=== PATIENT | male | born 1970 | race Caucasian/White ===

== ENCOUNTER 2018-09-13 10:45 | Emergency (ER) | payer BC ==
[2018-09-13] MEDS ORDERED: Orphenadrine 100 MG Tab.ER PO STA (11:38)
--- NOTE | 2018-09-13 11:46 | EDM.PDOC ---
ED HPI GENERAL MEDICAL PROBLEM - General Chief Complaint: Headache Stated Complaint: HEADACHE Time Seen by Provider: 09/13/18 11:19 Source of Information: Reports: Patient, Family (), RN Notes Reviewed History Limitations: Reports: No Limitations - History of Present Illness INITIAL COMMENTS - FREE TEXT/NARRATIVE: The patient states that he has had a headache felt in the back of his head, radiating to his jaws, ears, and the back of his eyes, for the past 6 weeks, persistently. It is sharp and stabbing in character. The patient is able to sleep, but the headache is still there when he wakes up. He has been taking Tylenol and Excedrin, without meaningful relief. He states that he was seen at the [facility] about 2 weeks ago. He states that no tests were done, but that he was prescribed [place]. He states that the [place] only seems to help for about one hour. The patient reports some blurry vision, and that he occasionally sees spots. He has had some nausea, but no emesis. No neurologic symptoms, such as tingling, numbness, or weakness. The patient reports that he has had similar headaches in the past, in fact, for most of his life. He reports that he has previously had neurologic evaluations, and the conclusion was that his headaches are related to neck issues. He states that he had the best relief after he had neck surgery, until a bone spur subsequently developed, and his headaches returned. The patient does not recall when the last imaging of his head was. The patient's PCP is Aleksandar Manuel. Headache Pain Score (Numeric/FACES): 8 - Related Data Allergies Allergy/AdvReac Type Severity Reaction Status Date / Time citalopram hydrobromide Allergy Cannot Verified 09/13/18 11:07 [From Celexa] Remember sertraline HCl [From Zoloft] Allergy Cannot Verified 09/13/18 11:07 Remember Tetanus Vaccines and Toxoid Allergy Fever Verified 09/13/18 11:07 [Tetanus Vaccines & Toxoid] Home Meds: Home Meds Celecoxib [CeleBREX] 100 mg PO BID 09/13/18 [History] Metoprolol Succinate 25 mg PO DAILY 09/13/18 [History] Montelukast [Singulair] 10 mg PO DAILY 09/13/18 [History] Nabumetone/Capsai/M-Salicy/Men [Nudroxipak N-500 Evgeny] 1 each MC DAILY PRN [History] Orphenadrine [Norflex] 1 tab PO Q12H PRN #14 tab.er 09/13/18 [Rx] tiZANidine [Zanaflex] 4 mg PO BEDTIME PRN 09/13/18 [History] Past Medical History Cardiovascular History: Reports: Hypertension Genitourinary History: Reports: Renal Calculus Musculoskeletal History: Reports: Neck Pain, Chronic (DDD), Osteoarthritis - Past Surgical History HEENT Surgical History: Reports: Naso-Sinus Surgery, Oral Surgery (wisdom teeth extraction) Neurological Surgical History: Reports: C-Spine (ACDF x 2, totalling C3-C7) Social & Family History - Family History Family Medical History: Noncontributory - Tobacco Use Smoking Status *Q: Former Smoker Tobacco Use Within Last Twelve Months: Smokeless Tobacco (Chews 1 can per week) Month/Year Tobacco Last Used: Quit 1988 - Caffeine Use Caffeine Use: Reports: Soda - Alcohol Use Alcohol Use History: Yes Alcohol Use Frequency: Rarely - Recreational Drug Use Recreational Drug Use: No - Living Situation & Occupation Living situation: Reports: , with Spouse, with Family (2 kids) Occupation: Employed (Dental Prosthetist) ED ROS GENERAL - Review of Systems Review Of Systems: ROS reveals no pertinent complaints other than HPI. - Physical Exam Exam: See Below Exam Limited By: No Limitations General Appearance: Alert, WD/WN, No Apparent Distress Eye Exam: Bilateral Eye: EOMI, Normal Inspection, PERRL (3 mm bilaterally) Ears: Normal External Exam, Normal Canal, Hearing Grossly Normal, Normal TMs Nose: Normal Inspection, Normal Mucosa, No Blood Throat/Mouth: Normal Inspection, Normal Lips, Normal Teeth, Normal Gums, Normal Oropharynx, Normal Voice, No Airway Compromise Head Exam: Atraumatic, Normocephalic Neck: Normal Inspection, Limited Range of Motion Respiratory/Chest: No Respiratory Distress, Lungs Clear, Normal Breath Sounds, No Accessory Muscle Use Cardiovascular: Normal Peripheral Pulses, Regular Rate, Rhythm, No Edema, No Gallop, No JVD, No Murmur, No Rub GI/Abdominal: Normal Bowel Sounds, Soft, Non-Tender, No Organomegaly, No Distention, No Abnormal Bruit, No Mass (Male) Exam: Deferred Rectal (Males) Exam: Deferred Neuro Exam (Abbreviated): Alert, Oriented, CN II-XII Intact, Normal Cognition, No Motor/Sensory Deficits Back Exam: Normal Inspection, Full Range of Motion, NT Extremities: Normal Inspection, Normal Range of Motion, No Pedal Edema, Normal Capillary Refill Psychiatric: Normal Affect Skin Exam: Warm, Dry, Intact, Normal Color, No Rash Course - Vital Signs Last Recorded V/S: Last Vital Signs Temp 36.1 C 09/13/18 11:07 Pulse 62 09/13/18 11:07 Resp 16 09/13/18 11:07 BP 124/88 09/13/18 11:07 Pulse Ox 96 09/13/18 11:07 - Orders/Labs/Meds Meds: Medications Discontinued Medications Generic Name Dose Route Start Last Admin Trade Name Freq PRN Reason Stop Dose Admin Orphenadrine Citrate 100 mg 09/13/18 11:38 09/13/18 11:54 Norflex PO 09/13/18 11:39 100 mg ONETIME STA Administration - Re-Assessments/Exams Free Text/Narrative Re-Assessment/Exam: 09/13/18 11:39 Based on the patient's history, he is most likely suffering from a tension headache related to neck problems, possibly a herniated intervertebral disc. His neurologic examination is entirely normal, nevertheless, in accordance with current guidelines, I offered a CT scan of his head, however, he declined. For today's purposes, I will start the patient on Norflex, then have him follow-up with his neck surgeon at [facility] [place]. They may want to repeat a MRI of his neck to evaluate for a herniated intervertebral disc. I advised the patient to try to avoid analgesics, noting that with repeated analgesic use, even something as simple as Tylenol, he runs the risk of developing a rebound headache. The patient is agreeable with this plan. Departure - Departure Time of Disposition: 11:41 Disposition: Home, Self-Care 01 Condition: Fair Clinical Impression: Chronic tension headache - Discharge Information *PRESCRIPTION DRUG MONITORING PROGRAM REVIEWED*: Not Applicable *COPY OF PRESCRIPTION DRUG MONITORING REPORT IN PATIENT LONG: Not Applicable Prescriptions: Orphenadrine [Norflex] 1 tab PO Q12H PRN #14 tab.er PRN Reason: Muscle Spasm Instructions: Tension Headache, Adult, [id number] Referrals: Aleksandar Manuel PA-C [Primary Care Provider] - Forms: ED Department Discharge Additional Instructions: You were seen in the emergency room for a persistent headache over the last 6 weeks. In the ER, your neurologic examination was completely normal. A CT scan of her head was offered, in accordance with current guidelines, but declined. Based on your history and physical examination, the cause of your headache is most likely due to a tension headache related to your neck. You have been started on the muscle relaxant Norflex. A prescription for Norflex has been sent to the [facility], located in the [facility] grocery store. Take one tablet every 12 hours, starting this evening, Thursday, , as prescribed. As discussed, we recommend that you try to avoid analgesics, whether Tylenol, ibuprofen, or Aleve, because with repeated use, you can develop a medication overuse headache, also known as a rebound headache. Follow-up with your neck surgeon at [facility] [place], for further evaluation. If any other problems, please do not hesitate to return to the ER.
== END 2018-09-13 11:56 | disposition home or self-care (01) ==
LOC: JD.ED 10:45
DX: G44.229 Chronic tension-type headache, not intractable (principal); I10 Essential (primary) hypertension; Z87.891 Personal history of nicotine dependence; Z88.8 Allergy status to other drugs, medicaments and biological substances; Z88.7 Allergy status to serum and vaccine; Z79.899 Other long term (current) drug therapy
CPT/HCPCS: 99284; A9270

== ENCOUNTER 2019-05-10 07:23 | Day surgery (SDC) | payer BC ==
[~2019-05-10 07:23] MED LIST: Lidocaine 1% 4 ML ONE; Midazolam 1 MG/ML 2 ML SDV ONE; Propofol 200 MG/20 ML SDV ONE; Sodium Chloride 0.9% 10 ML Syringe FLUSH PRN
[2019-05-10] MEDS: Lactated Ringers 1,000 ML IV SCH (07:40)
[2019-05-10] MEDS: Lidocaine 1%/Sod Bicarbonate in NS 8.4% 1 ML Syringe IDERM PRN (07:40)
--- NOTE | 2019-05-10 07:49 | PCM.PREANE ---
Preanesthetic Assessment - Anesthesia/Transfusion/Family Hx Anesthesia History: Prior Anesthesia Without Reaction Family History of Anesthesia Reaction: No - Review of Systems General: No Symptoms Pulmonary: Other (NITHIN does not wear his CPAP) Cardiovascular: No Symptoms Gastrointestinal: Abdominal Pain Neurological: No Symptoms Other: Reports: None (On Naltrexone), Neck Pain (History of Neck Fusion x 2. C3- 7. Good ROM.), Anxiety - Physical Assessment NPO Status Date: 05/09/19 NPO Status Time: 14:00 Weight: 65.317 kg ASA Class: 2 Mental Status: Alert & Oriented x3 Airway Class: Mallampati = 2 Dentition: Reports: Normal Dentition Thyro-Mental Finger Breadths: 3 Mouth Opening Finger Breadths: 3 ROM/Head Extension: Full Lungs: Clear to Auscultation, Normal Respiratory Effort Cardiovascular: Regular Rate, Regular Rhythm - Allergies Allergies/Adverse Reactions: Allergies Allergy/AdvReac Type Severity Reaction Status Date / Time citalopram hydrobromide Allergy Cannot Verified 05/09/19 16:50 [From Celexa] Remember sertraline HCl [From Zoloft] Allergy Cannot Verified 05/09/19 16:50 Remember Tetanus Vaccines and Toxoid Allergy Fever Verified 05/09/19 16:50 [Tetanus Vaccines & Toxoid] - Anesthesia Plan Pre-Op Medication Ordered: Anxiolytic - Acknowledgements Anesthesia Type Planned: MAC Pt an Appropriate Candidate for the Planned Anesthesia: Yes Alternatives and Risks of Anesthesia Discussed w Pt/Guardian: Yes Pt/Guardian Understands and Agrees with Anesthesia Plan: Yes PreAnesthesia Questionnaire Cardiovascular History: Reports: Hypertension Genitourinary History: Reports: Renal Calculus Musculoskeletal History: Reports: Neck Pain, Chronic (DDD), Osteoarthritis - Past Surgical History HEENT Surgical History: Reports: Naso-Sinus Surgery, Oral Surgery (wisdom teeth extraction) Neurological Surgical History: Reports: C-Spine (ACDF x 2, totalling C3-C7) - HOME MEDS Home Medications: Home Meds Metoprolol Succinate 25 mg PO DAILY 09/13/18 [History] - CURRENT (IN HOUSE) MEDS Current Meds: Current Medications Lactated Ringer's (Ringers, Lactated) 1,000 mls @ 125 mls/hr IV ASDIRECTED DARLINE Stop: 05/10/19 23:00 Lidocaine/Sodium Bicarbonate (Buffered Lidocaine 1% In Ns 8.4%) 0.25 ml IDERM ONETIME PRN PRN Reason: Prior to IV Start Stop: 05/10/19 18:00 Sodium Chloride (Saline Flush) 10 ml FLUSH ASDIRECTED PRN PRN Reason: Keep Vein Open Stop: 05/10/19 18:00 Discontinued Medications Lidocaine HCl (Xylocaine-Mpf 1%) Confirm Administered Dose 4 mls @ as directed .ROUTE .STK-MED ONE Stop: 05/10/19 07:15 Midazolam HCl (Versed 1 Mg/Ml) Confirm Administered Dose 2 mg .ROUTE .STK-MED ONE Stop: 05/10/19 07:15 Propofol (Diprivan 20 Ml) Confirm Administered Dose 400 mg .ROUTE .STK-MED ONE Stop: 05/10/19 07:15
--- NOTE | 2019-05-10 08:23 | PCM48HPAN ---
Post Anesthesia Note - EVALUATION WITHIN 48HRS OF ANESTHETIC Vital Signs in Normal Range: Yes Patient Participated in Evaluation: Yes Respiratory Function Stable: Yes Airway Patent: Yes Cardiovascular Function Stable: Yes Hydration Status Stable: Yes Pain Control Satisfactory: Yes Nausea and Vomiting Control Satisfactory: Yes Mental Status Recovered: Yes Vital Signs: Last Vital Signs 97.7 92/63 56 14 96%
--- NOTE | 2019-05-10 17:19 | OR ---
DATE OF OPERATION: 05/10/2019 SURGEON: Michael Huggins MD PREOPERATIVE DIAGNOSIS: Abdominal pain with no clear etiology. Family history of gastric cancer. POSTOPERATIVE DIAGNOSIS: Abdominal pain with no clear etiology. Family history of gastric cancer. Sliding hiatal hernia. OPERATION PERFORMED: EGD with biopsies. ANESTHESIA: MAC. PATHOLOGY: 1. Multiple bites from the duodenum. 2. Duodenal bulb. 3. Antrum. 4. Body. 5. Fundus. FINDINGS: Aside from a sliding hiatal hernia, he had an unremarkable EGD. I found no ulcerations, no villous blunting. He had a patulous GE junction with a sliding hiatal hernia, but no evidence of Garcia's esophagus. I found no esophagitis. COMPLICATIONS: None. ESTIMATED BLOOD LOSS: Minimal. DISPOSITION: Stable at the end of the procedure. INDICATION: Robbie is a 49-year-old male, who presented to my office with severe right upper quadrant pain. This was postprandial, radiating up to the neck on the right around to the scapula on the right and also down to the feet. His pain was severe. He already had an ultrasound, which was negative. No stones were identified. No thickening of the gallbladder wall. No pericholecystic fluid. HIDA scan was also negative showing more than 70% ejection fraction. No evidence of calculous cholecystitis. The patient was offered an EGD given a family history of gastric cancer. He actually wanted his gallbladder removed, but without objective evidence, I was hesitant before ruling out other potential causes. He was fully informed of the major risks of the procedure. These include, but are not limited to perforation of the GI tract, bleeding, the risks of anesthesia, the possibility of further surgery, aspiration, laryngeal spasm, and pneumonia among others. He gave informed consent of what was done. DESCRIPTION OF PROCEDURE: Robbie was brought to the gastro suite and placed in the left lateral decubitus position. He was given monitored anesthesia. I introduced the endoscope into the proximal esophagus with a bite block. I advanced the scope, keeping the lumen in view at all times with gentle forward pressure. I entered the stomach. I identified a sliding hiatal hernia. I retroflexed the scope at the GE junction and documented that photographically. I slowly investigated the mucosa of the stomach. I found no ulcerations. I introduced the scope into the duodenum to the 4th portion. I biopsied randomly greater than 4 biopsies of the duodenum. I then withdrew the scope and biopsied the duodenal bulb with a question of celiac sprue. I then biopsied the antrum, body, and fundus. I withdrew the scope into the esophagus inspecting the mucosa of the esophagus at the GE junction. There was no evidence of Garcia's esophagus. I continued my inspection of the esophageal mucosa. I found no lesions, no ulcerations, no esophagitis. I evacuated the air from the stomach and then withdrew the scope in its entirety. He had no complications and tolerated the procedure well. PLAN: He is insistent on having his gallbladder removed as he is convinced that this is the cause of his issues. I will have a lengthy discussion with him regarding the risks, benefits, and alternatives of that procedure as well as the review within the evidence that his gallbladder is not at play and we will go from there. HILDA /[id number]
== END 2019-05-10 09:20 | disposition home or self-care (01) ==
LOC: JD.SDS 07:23
PROVIDERS: ATTEND Surgery
DX: K44.9 Diaphragmatic hernia without obstruction or gangrene (principal); I10 Essential (primary) hypertension; G43.909 Migraine, unspecified, not intractable, without status migrainosus; Z87.891 Personal history of nicotine dependence; Z80.0 Family history of malignant neoplasm of digestive organs; Z88.8 Allergy status to other drugs, medicaments and biological substances; Z88.7 Allergy status to serum and vaccine; Z79.899 Other long term (current) drug therapy
CPT/HCPCS: 00731; J2001; J2250; J2704; J7120

== ENCOUNTER 2019-05-12 08:07 | Day surgery (SDC) | payer BC ==
[~2019-05-12 08:07] MED LIST changes: +Dexamethasone 4 MG/ML 5 ML MDV ONE; -Lidocaine 1% 4 ML ONE; +Lidocaine 1% 6 ML ONE; +Lidocaine 1%/Sod Bicarbonate in NS 8.4% 1 ML Syringe IDERM PRN; +Ondansetron 4 MG/2 ML SDV ONE; +Rocuronium 50 MG/5 ML Vial ONE; +fentaNYL 250 MCG/5 ML SDV ONE
[2019-05-12] MEDS ORDERED: cefOXitin 2 GM in Premix Bag 1 BAG IV ONE (08:14)
[2019-05-12] MEDS ORDERED: Ondansetron 4 MG/2 ML SDV IVPUSH PRN (08:28)
[2019-05-12] MEDS ORDERED: diphenhydrAMINE 50 MG/ML SDV IVPUSH PRN (08:28)
--- NOTE | 2019-05-12 08:30 | PCM.PREANE ---
Preanesthetic Assessment - Procedure Proposed Procedure: laparoscopic cholecystectomy - Anesthesia/Transfusion/Family Hx Anesthesia History: Prior Anesthesia Without Reaction Family History of Anesthesia Reaction: No Transfusion History: No Prior Transfusion(s) Intubation History: Unknown (cervical neck fusion ) - Review of Systems General: No Symptoms Pulmonary: No Symptoms Cardiovascular: No Symptoms Gastrointestinal: Diarrhea, Nausea, Other (note jaundice in patient's sclera ) Neurological: Headache Other: Reports: None - Physical Assessment NPO Status Date: 05/11/19 NPO Status Time: 19:00 Vital Signs: 112/76, 62 pulse, 95spo2, 5'8", 65.3 kg, 98.0 temp 6/10 pain , rr 16 Height: 1.73 m Weight: 65 kg ASA Class: 3 Mental Status: Alert & Oriented x3 Airway Class: Mallampati = 3 Dentition: Reports: Normal Dentition Thyro-Mental Finger Breadths: 2 Mouth Opening Finger Breadths: 4 ROM/Head Extension: Limited/Partial (neck fusion) Lungs: Clear to Auscultation, Normal Respiratory Effort Cardiovascular: Regular Rate, Regular Rhythm - Allergies Allergies/Adverse Reactions: Allergies Allergy/AdvReac Type Severity Reaction Status Date / Time citalopram hydrobromide Allergy Cannot Verified 05/09/19 16:50 [From Celexa] Remember sertraline HCl [From Zoloft] Allergy Cannot Verified 05/09/19 16:50 Remember Tetanus Vaccines and Toxoid Allergy Fever Verified 05/09/19 16:50 [Tetanus Vaccines & Toxoid] - Blood Blood Available: No - Anesthesia Plan Pre-Op Medication Ordered: None Beta [place]: Metoprolol Med Last Dose Date: 05/11/19 Med Last Dose Time: 05:30 (bradycardia with last procedure so will hold off on oral dose ) - Acknowledgements Anesthesia Type Planned: General Anesthesia Pt an Appropriate Candidate for the Planned Anesthesia: Yes Alternatives and Risks of Anesthesia Discussed w Pt/Guardian: Yes Pt/Guardian Understands and Agrees with Anesthesia Plan: Yes PreAnesthesia Questionnaire Cardiovascular History: Reports: Hypertension Genitourinary History: Reports: Renal Calculus Musculoskeletal History: Reports: Neck Pain, Chronic (DDD), Osteoarthritis - Past Surgical History HEENT Surgical History: Reports: Naso-Sinus Surgery, Oral Surgery (wisdom teeth extraction) Neurological Surgical History: Reports: C-Spine (ACDF x 2, totalling C3-C7) - HOME MEDS Home Medications: Home Meds Metoprolol Succinate 25 mg PO DAILY 09/13/18 [History] - CURRENT (IN HOUSE) MEDS Current Meds: Current Medications Lactated Ringer's (Ringers, Lactated) 1,000 mls @ 125 mls/hr IV ASDIRECTED DARLINE Stop: 05/12/19 23:00 Cefoxitin Sodium 2 gm/ Premix 50 mls @ 100 mls/hr IV ONETIME ONE Stop: 05/12/19 08:43 Lidocaine/Sodium Bicarbonate (Buffered Lidocaine 1% In Ns 8.4%) 0.25 ml IDERM ONETIME PRN PRN Reason: Prior to IV Start Stop: 05/12/19 23:00 Sodium Chloride (Saline Flush) 10 ml FLUSH ASDIRECTED PRN PRN Reason: Keep Vein Open Discontinued Medications Dexamethasone (Dexamethasone) Confirm Administered Dose 20 mg .ROUTE .STK-MED ONE Stop: 05/12/19 07:26 Fentanyl (Sublimaze) Confirm Administered Dose 250 mcg .ROUTE .STK-MED ONE Stop: 05/12/19 07:22 Lidocaine HCl (Xylocaine-Mpf 1%) Confirm Administered Dose 6 mls @ as directed .ROUTE .STK-MED ONE Stop: 05/12/19 07:24 Midazolam HCl (Versed 1 Mg/Ml) Confirm Administered Dose 2 mg .ROUTE .STK-MED ONE Stop: 05/12/19 07:22 Ondansetron HCl (Zofran) Confirm Administered Dose 4 mg .ROUTE .STK-MED ONE Stop: 05/12/19 07:26 Propofol (Diprivan 20 Ml) Confirm Administered Dose 400 mg .ROUTE .STK-MED ONE Stop: 05/12/19 07:22 Rocuronium [place] (Zemuron) Confirm Administered Dose 50 mg .ROUTE .STK-MED ONE Stop: 05/12/19 07:27
[2019-05-12] MEDS ORDERED: Bupivacaine 0.5% 30 ML SDV ONE (08:39)
[2019-05-12] MEDS: Lactated Ringers 1,000 ML IV SCH ×2 (08:40→12:04)
--- NOTE | 2019-05-12 09:27 | HP ---
DATE OF ADMISSION: 05/12/2019 ADMITTING DIAGNOSES: Abdominal pain and question of biliary colic. HISTORY OF PRESENT ILLNESS: The patient is a 49-year-old male, who is referred to me for right upper quadrant abdominal pain. He said the pain is 10/10 in intensity. It is worsened after meals. It radiates around to the tip of his right scapula. He says he lost about 10 pounds in this process. It started about 2 months ago. He also mentioned some radiation of pain up into his neck and down to his feet. He says he hurts all over. He has had an extensive workup. His gallbladder showed no stones, sludge, or gallbladder wall thickening. There was no rim- enhancing character to the gallbladder. He also had a HIDA scan, which showed no evidence of cholecystitis. Question of other causes was raised. He underwent an EGD. This showed a sliding hiatal hernia, but there were no ulcerations, no villous blunting. He underwent an EGD, which showed a sliding hiatal hernia, but I could find no other potential cause for his abdominal pain. His CRP has remained normal. He is quite convinced that his gallbladder is the cause of his symptoms. On the day of his EGD, he requested a cholecystectomy and was quite firm on the idea. PAST MEDICAL HISTORY: Anxiety, bulging cervical disk, sinusitis, diarrhea, hypertension, kidney stones, migraine headaches, hypertension, history of myalgias, and back spasms. PAST SURGICAL HISTORY: He has had EGD recently showing a small sliding hiatal hernia. He had a tooth extraction. FAMILY HISTORY: Significant for mother who had a myocardial infarction at age 54. His father had prostate cancer, and his brother had gastric cancer. SOCIAL HISTORY: He drinks about 7 alcoholic beverages per year. Denies illicit drugs. Denies cigarette smoking. REVIEW OF SYSTEMS: A 10-system review is completely unremarkable, except for that listed above. PHYSICAL EXAMINATION: GENERAL: He is alert. He is actually quite cheerful today, in no obvious distress. VITAL SIGNS: Within normal limits. HEAD AND NECK: Normocephalic and atraumatic. He is anicteric. His neck is supple. Full range of motion. LUNGS: Clear to auscultation bilaterally. HEART: Regular rate and rhythm. No clicks, murmurs, or rubs. ABDOMEN: He has tenderness in the right upper quadrant out of proportion to the physical exam. He appears to have a Gandara sign, though it is difficult to assess. He has generalized tenderness, greatest in the right upper quadrant. No hepatosplenomegaly is appreciated. No hernias appreciated. LYMPHATICS: No lymphadenopathy. MUSCULOSKELETAL: His gait is normal. Spine in alignment. NEUROLOGIC: His cranial nerves appear grossly intact. His sensation and movement are preserved in all 4 extremities. PSYCHIATRIC: He has appropriate affect and demeanor. ASSESSMENT: Abdominal pain. He gives a good story for biliary colic despite his negative workup so far. PLAN: I have offered him an exploratory laparoscopy to rule out other causes. He will also undergo an incidental cholecystectomy. I thoroughly discussed with him the very possibility that his pain will not resolve with cholecystectomy. I have also discussed with him at length the major risks of having a cholecystectomy. These include, but are not limited to, bile leak, injury to the common duct, retained stone, injury to any abdominal structure, injury to bowel, the possibility of further surgery including repair of a common bile duct injury, hernias of the port sites, and many other risks as well. He has given informed consent and is insistent on having his gallbladder removed. HILDA /[id number]
[2019-05-12] MEDS ORDERED: Ketorolac 30 MG/ML SDV ONE ×2 (10:16→10:49)
[2019-05-12] MEDS ORDERED: Neostigmine Methylsulfate 1 MG/ML 5 ML Syringe ONE (10:16)
[2019-05-12] MEDS ORDERED: Ketamine 500 mg/10 ML MDV ONE (10:30)
[2019-05-12] MEDS ORDERED: Ondansetron 4 MG/2 ML SDV ONE (10:49)
[2019-05-12] MEDS ORDERED: HYDROmorphone 0.5 MG/0.5 ML Syringe IVPUSH PRN ×2 (11:25→11:42)
--- NOTE | 2019-05-12 11:28 | PCM.POSTAN ---
POST ANESTHESIA ASSESSMENT - MENTAL STATUS Mental Status: Alert - VITAL SIGNS Vital Signs: Last Vital Signs 1117 138/95 77 hr 15 rr 99 % on 2 L NC 97.1 Temp 36.7 C 05/12/19 08:30 Pulse 62 05/12/19 08:30 Resp 16 05/12/19 08:30 BP 112/76 05/12/19 08:30 Pulse Ox 95 05/12/19 08:30 - RESPIRATORY Respiratory Status: Respiratory Rate WNL, Airway Patent, O2 Saturation Stable - CARDIOVASCULAR CV Status: Pulse Rate WNL, Blood Pressure Stable - GASTROINTESTINAL GI Status: No Symptoms - PAIN Pain Score: 7 (DIAMOND WHEEL MOLDER TO TREAT ) - POST OP HYDRATION Hydration Status: Adequate & Stable
[2019-05-12] MEDS: fentaNYL 100 MCG/2 ML SDV IVPUSH PRN ×2 (11:37→11:47)
[2019-05-12] MEDS ORDERED: Midazolam 1 MG/ML 2 ML SDV IVPUSH PRN (11:44)
[2019-05-12] MEDS ORDERED: Lactated Ringers 1,000 ML ONE (12:26)
[2019-05-12] MEDS ORDERED: Acetaminophen 325 MG Tab PO SCH (13:45)
--- NOTE | 2019-05-12 19:12 | OR ---
DATE OF OPERATION: 05/12/2019 SURGEON: Michael Huggins MD PREOPERATIVE DIAGNOSIS: Biliary colic, right upper quadrant abdominal pain. POSTOPERATIVE DIAGNOSIS: Biliary colic, right upper quadrant abdominal pain, abdominal adhesions, and left lobe hemangioma. OPERATION PERFORMED: Exploratory laparoscopy and laparoscopic cholecystectomy. ANESTHESIA: General with endotracheal intubation. FINDINGS: He had some adhesions to the anterior abdominal wall, which did not appear to be causing obstruction. We also noted a hemangioma in segment 3 of the liver anteriorly. The gallbladder was noted to be somewhat sigma shaped and had a bit of circuitous exit. There was some inflammation around the infundibulum and the cystic duct. I could not appreciate any stones. He also had adhesions to the gallbladder, which I took down during the procedure. PATHOLOGY: Gallbladder and contents. ESTIMATED BLOOD LOSS: Approximately 3 mL. DISPOSITION: Stable at the end of the procedure. INDICATION: The patient is a 49-year-old male with a 2-month history of abdominal pain associated with weight loss. He has had an extensive workup as my H and P demonstrates. Please see further details of that workup. His labs showed again an elevated bilirubin, which he has had for at least the last 4 years in our medical record, but no evidence of biliary obstruction. He was offered an exploratory laparoscopy for diagnosis and a presumptive laparoscopic cholecystectomy. He was fully informed of major risks of the procedure. I emphasized the possibility that his pain does not go away and this procedure does not solve his problem. He insists he would like to have his gallbladder removed. Please see my H and P for further details of that discussion. He gave informed consent for the procedure. DESCRIPTION OF PROCEDURE: The patient was brought to the operating room and placed in a supine position on the operating table. He was given cefoxitin 2 g IV preoperatively. General anesthesia was induced. He was intubated. The abdomen was prepped and draped in the usual sterile fashion. I 1st introduced a Veress needle in the left upper quadrant. I insufflated to a pressure of 15 mmHg with CO2 gas. There was no restriction as I insufflated. I introduced a 5 mm optical port in the right upper quadrant. I visualized the tissue planes as the port passed in the peritoneum at this port site in the anterior axillary line. I visualized the Veress needle up in the air in the left upper quadrant. There was no contact to underlying bowel. The Veress was removed. The gas was switched to existing port. I passed a 10 mm port in the umbilicus. This was done under laparoscopic visualization. I did visualize several adhesions along the anterior abdominal wall, which were adjacent to and inferior to the umbilicus and did not interfere with my port passage and did not appear to be obstructing. Two additional ports were passed under direct laparoscopic visualization, 1 in the epigastrium and 1 in the midclavicular line. I thoroughly inspected the abdomen. I identified the adhesions as previously noted. I also noted a hemangioma in segment 3 of the liver anteriorly. There was no cirrhosis noted. The gallbladder was inspected. It was found to be somewhat sigma shaped with a somewhat circuitous course from the body to the infundibulum and there was inflammation around the distal portion of the gallbladder surrounding the cystic duct as well. I did not appreciate stones. After a thorough exploration of the abdomen, I found no other pathology. At this point, I grasped the gallbladder and retracted it cranially. The infundibulum was grasped. I dissected the cystic duct and cystic artery. These structures were skeletonized and then clipped proximally and distally and transected. Three clips were left on the cystic duct. Two clips were left on the cystic artery. I grasped the gallbladder and distracted the infundibulum away from the common duct. Further dissection was undertaken until I was assured I was away from any danger zone. At this point, the hook cautery was attached and then utilized to resect the gallbladder from its attachment to the liver. The gallbladder was placed in an EndoCatch bag and left temporarily in the peritoneum. I inspected the right upper quadrant for bleeding. The gallbladder fossa was inspected. There was a minimal ooze from the gallbladder fossa, which was easily controlled with the Bovie cautery and with hook. Once I was assured of meticulous hemostasis, I inspected the clips. The clips were seen to be still in place. I used a Ray-Génesis to mop up approximately 3 mm of blood, which had collected during the dissection. The Ray- Génesis was removed. The gallbladder was removed through the larger port site while still in the EndoCatch bag and sent to Pathology for further examination. A Rufino-Stephy was used to obliterate the defect at the umbilicus with a figure- of-eight stitch. An 0 Vicryl suture was used for this purpose under laparoscopic visualization. Finally, the gas was desufflated through the open ports and the ports were removed. 4-0 Monocryl was used to reapproximate the skin. Dermabond was applied for sterile barrier. He had no complications and tolerated the procedure well. He was awakened from anesthesia and moved to recovery in stable condition. MMODAL /[id number]
--- NOTE | 2019-05-16 10:47 | PCM48HPAN ---
Post Anesthesia Note - EVALUATION WITHIN 48HRS OF ANESTHETIC Vital Signs in Normal Range: Yes Patient Participated in Evaluation: Yes Respiratory Function Stable: Yes Airway Patent: Yes Cardiovascular Function Stable: Yes Hydration Status Stable: Yes Pain Control Satisfactory: Yes Nausea and Vomiting Control Satisfactory: Yes Mental Status Recovered: Yes Vital Signs: Last Vital Signs Temp 36.9 C 05/12/19 14:05 Pulse 62 05/12/19 14:05 Resp 16 05/12/19 14:05 BP 123/72 05/12/19 14:05 Pulse Ox 99 05/12/19 14:05 - COMMENTS/OBSERVATIONS Free Text/Narrative:: report from RN's patient stable and meets criteria for discharge
== END 2019-05-12 14:25 | disposition home or self-care (01) ==
LOC: JD.SDS 08:07
PROVIDERS: ATTEND Surgery
DX: K81.9 Cholecystitis, unspecified (principal); K82.8 Other specified diseases of gallbladder; K66.0 Peritoneal adhesions (postprocedural) (postinfection); D18.03 Hemangioma of intra-abdominal structures; I10 Essential (primary) hypertension; Z79.899 Other long term (current) drug therapy; Z88.8 Allergy status to other drugs, medicaments and biological substances; Z88.7 Allergy status to serum and vaccine; F41.9 Anxiety disorder, unspecified; G47.33 Obstructive sleep apnea (adult) (pediatric); M54.12 Radiculopathy, cervical region; K44.9 Diaphragmatic hernia without obstruction or gangrene
CPT/HCPCS: 36415; 47562; 80053; A9270; J0694; J1100; J1170; J1885; J2001; J2250; J2405; J2704; J2710; J3010; J3490; J7120; 00790

== ENCOUNTER 2022-11-11 16:37 | Emergency (ER) | payer BC ==
[2022-11-11] MEDS ORDERED: Ondansetron 4 MG/2 ML SDV IVPUSH ONE (17:27)
[2022-11-11] MEDS ORDERED: Sodium Chloride 0.9% 10 ML Syringe FLUSH PRN (17:27)
[2022-11-11] MEDS ORDERED: Ketorolac 30 MG/ML SDV IVPUSH ONE (17:28)
[2022-11-11] MEDS ORDERED: HYDROmorphone 1 MG/ML Syringe IVPUSH ONE (17:28)
[2022-11-11] MEDS ORDERED: Sodium Chloride 0.9% 1,000 ML IV SCH (17:30)
== END 2022-11-11 21:17 | disposition home or self-care (01) ==
LOC: JD.ED 16:37
DX: N13.2 Hydronephrosis with renal and ureteral calculous obstruction (principal); I10 Essential (primary) hypertension; Z88.8 Allergy status to other drugs, medicaments and biological substances; Z88.7 Allergy status to serum and vaccine; Z88.1 Allergy status to other antibiotic agents
CPT/HCPCS: 36415; 74176; 80053; 81001; 83690; 85025; 96361; 96374; 96375; 99284; J1170; J1885; J2405; J3490; J7030

== ENCOUNTER 2023-01-25 00:59 | Emergency (ER) | payer OTHER, BC ==
[2023-01-25] MEDS ORDERED: Ondansetron 4 MG/2 ML SDV ONE (01:09)
[2023-01-25] MEDS ORDERED: Morphine 4 MG/ML Syringe ONE (01:09)
[2023-01-25] MEDS ORDERED: Morphine 4 MG/ML Syringe IVPUSH ONE (01:13)
[2023-01-25 01:15] LABS: BASOPHILS ABSOLUTE AUTO 0.04 K/mm3 (0.01-0.08); BASOPHILS PERCENT AUTO 0.3 % (0.1-1.2); EOSINOPHILS ABSOLUTE AUTO 0.04 K/mm3 (0.04-0.54); EOSINOPHILS PERCENT AUTO 0.3 (0.8-7.0); HEMATOCRIT 49.7 % (40.1-51.0); HEMOGLOBIN 17.4 gm/dl (13.7-17.5); IMMATURE GRAN ABSOLUTE AUTO 0.06 K/mm3 (0.00-0.10); IMMATURE GRAN PERCENT AUTO 0.5 % (<=1.0); LYMPHOCYTES ABSOLUTE AUTO 1.84 K/mm3 (1.32-3.57); MEAN CORPUSCULAR HEMOGLOBIN 29.8 pg (25.7-32.2); MEAN CORPUSCULAR VOLUME 85.2 fl (79.0-92.2); MEAN PLATELET VOLUME 10.2 fl (9.4-12.3); MONOCYTES ABSOLUTE AUTO 1.48 K/mm3 (0.30-0.82); MONOCYTES PERCENT AUTO 11.3 % (5.3-12.2); NEUTROPHILS ABSOLUTE AUTO 9.65 K/mm3 (1.78-5.38); NEUTROPHILS PERCENT AUTO 73.6 % (34.0-67.9); PLATELET COUNT,PLT 261 K/mm3 (163-337); RED BLOOD CELL COUNT 5.83 M/mm3 (4.63-6.08); WHITE BLOOD CELL COUNT,WBC 13.11 K/mm3 (4.23-9.07)
[2023-01-25] MEDS ORDERED: Ondansetron 4 MG/2 ML SDV IVPUSH ONE (01:15)
[2023-01-25 01:28] LABS: INR 1.04; PROTHROMBIN TIME 11.1 SECONDS (9.7-12.0)
[2023-01-25 01:29] LABS: PTT,PARTIAL THROMBOPLSTIN TIME 26.3 SECONDS (21.7-31.4)
[2023-01-25 01:45] LABS: A/G RATIO 1.6 (1-2); ALANINE AMINOTRANSFERASE,ALT 31 U/L (16-63); ALBUMIN 4.7 g/dl (3.4-5.0); ALKALINE PHOSPHATASE 97 U/L (46-116); AMYLASE 66 U/L (25-115); ANION GAP 20.4 (5-15); ASPARTATE AMNIOTRANSFERASE,AST 29 U/L (15-37); BILIRUBIN TOTAL 2.6 mg/dL (0.2-1.0); BLOOD UREA NITROGEN,BUN 15 mg/dL (7-18); BUN/CREATININE RATIO 11.5 (14-18); CALCIUM 9.6 mg/dL (8.5-10.1); CARBON DIOXIDE,CO2 21 mEq/L (21-32); CHLORIDE,CL 103 mEq/L (98-107); CREATININE 1.3 mg/dL (0.7-1.3); ESTIMATED GFR 65 mL/min (>60); GLUCOSE RANDOM 106 mg/dL (70-99); POTASSIUM,K 3.4 mEq/L (3.5-5.1); PROTEIN TOTAL,TP 7.7 g/dl (6.4-8.2); SODIUM,NA 141 mEq/L (136-145)
[2023-01-25] MEDS ORDERED: fentaNYL 100 MCG/2 ML SDV ONE (02:14)
[2023-01-25] MEDS ORDERED: fentaNYL 100 MCG/2 ML SDV IVPUSH ONE (02:15)
[2023-01-25] MEDS ORDERED: Potassium Chloride 20 MEQ Tab.ER PO ONE (04:02)
[2023-01-25] MEDS ORDERED: Acetaminophen/oxyCODONE 325-5 MG Tab PO ONE (04:40)
[2023-01-25 04:52] LABS: APPEARANCE,URINE CLEAR (Clear); BILIRUBIN,URINE NEGATIVE (Negative); COLOR,URINE YELLOW (Yellow); GLUCOSE,URINE NEGATIVE (Negative); KETONES,URINE 2+ (Negative); LEUKOCYTE ESTERASE,URINE NEGATIVE (Negative); NITRITE,URINE NEGATIVE (Negative); OCCULT BLOOD,URINE NEGATIVE (Negative); PH,URINE 7.5 (5.0-8.0); PROTEIN,URINE NEGATIVE (Negative); UROBILINOGEN,URINE 0.2 (0.2-1.0)
[2023-01-25 05:01] LABS: BARBITURATE SCREEN,URINE NEGATIVE (CUTOFF=200); BENZODIAZEPINES SCREEN,URINE NEGATIVE (CUTOFF=150); BUPRENORPHINE SCREEN,URINE NEGATIVE (CUTOFF=10); METHADONE SCREEN, URINE NEGATIVE (CUT0FF=200); METHAMPHETAMINES SCREEN, URINE NEGATIVE (CUTOFF=500); OXYCODONE SCREEN,URINE NEGATIVE (CUT0FF=100); PROPOXYPHENE SCREEN,URINE NEGATIVE (CUTOFF=300); THC SCREEN,URINE 20 NG/ML NEGATIVE (CUTOFF=50)
[2023-01-25 05:07] LABS: AMPHETAMINES SCREEN, URINE NEGATIVE (CUTOFF=500)
== END 2023-01-25 06:00 | disposition home or self-care (01) ==
LOC: JD.ED 00:59
DX: S33.8XXA Sprain of other parts of lumbar spine and pelvis, initial encounter (principal); S76.011A Strain of muscle, fascia and tendon of right hip, initial encounter; S76.012A Strain of muscle, fascia and tendon of left hip, initial encounter; S76.912A Strain of unspecified muscles, fascia and tendons at thigh level, left thigh, initial encounter; S76.911A Strain of unspecified muscles, fascia and tendons at thigh level, right thigh, initial encounter; S80.811A Abrasion, right lower leg, initial encounter; S80.812A Abrasion, left lower leg, initial encounter; I10 Essential (primary) hypertension; Z88.8 Allergy status to other drugs, medicaments and biological substances; Z88.7 Allergy status to serum and vaccine; Z79.899 Other long term (current) drug therapy; V27.49XA Other motorcycle driver injured in collision with fixed or stationary object in traffic accident, initial encounter; Y92.410 Unspecified street and highway as the place of occurrence of the external cause
CPT/HCPCS: 36415; 70450; 71260; 72125; 73130; 74177; 80053; 80306; 80307; 81003; 82150; 83605; 85025; 85610; 85730; 86850; 86900; 86901; 96374; 96375; 99284; A9270; J2270; J2405

== ENCOUNTER 2024-09-20 12:39 | Emergency (ER) | payer OTHER, BC ==
[2024-09-20 12:59] LABS: BASOPHILS PERCENT AUTO 0.4 % (0.0-1.0); EOSINOPHILS ABSOLUTE AUTO 0.1 K/mm3 (0.0-0.4); EOSINOPHILS PERCENT AUTO 0.9 % (0.0-6.0); HEMATOCRIT 47.9 % (42.0-52.0); HEMOGLOBIN 16.5 gm/dl (14.0-18.0); IMMATURE GRAN ABSOLUTE AUTO 0.03 K/mm3 (0.00-0.05); IMMATURE GRAN PERCENT AUTO 0.4 % (0.0-0.4); LYMPHOCYTES ABSOLUTE AUTO 1.7 K/mm3 (1.0-4.8); LYMPHOCYTES PERCENT AUTO 21.9 % (24.0-44.0); MEAN CORPUSCULAR HEMOGLOBIN 29.7 pg (28.0-32.0); MEAN CORPUSCULAR HGB CONC 34.4 g/dl (32.0-36.0); MEAN CORPUSCULAR VOLUME 86.3 fl (83.0-99.0); MEAN PLATELET VOLUME 9.9 fl (9.4-12.4); MONOCYTES ABSOLUTE AUTO 0.5 K/mm3 (0.0-0.8); MONOCYTES PERCENT AUTO 6.5 % (0.0-8.0); NEUTROPHILS ABSOLUTE AUTO 5.5 K/mm3 (1.8-7.7); NEUTROPHILS PERCENT AUTO 69.9 % (41.0-71.0); PLATELET COUNT,PLT 240 K/mm3 (150-400); RED BLOOD CELL COUNT 5.55 M/mm3 (4.52-5.90); WHITE BLOOD CELL COUNT,WBC 7.84 K/mm3 (3.9-11.3)
[2024-09-20] MEDS: HYDROmorphone 1 MG/ML Syringe IVPUSH ONE ×3 (13:03→14:52)
[2024-09-20 13:17] LABS: A/G RATIO 1.5 (1-2); ALANINE AMINOTRANSFERASE,ALT 19 U/L (16-63); ALBUMIN 4.1 g/dl (3.4-5.0); ALKALINE PHOSPHATASE 87 U/L (46-116); ANION GAP 13.5 (5-15); ASPARTATE AMNIOTRANSFERASE,AST 22 U/L (15-37); BILIRUBIN TOTAL 1.8 mg/dL (0.2-1.0); BLOOD UREA NITROGEN,BUN 10 mg/dL (7-18); BUN/CREATININE RATIO 9.1 (14-18); CALCIUM 8.6 mg/dL (8.5-10.1); CARBON DIOXIDE,CO2 28 mEq/L (21-32); CHLORIDE,CL 103 mEq/L (98-107); CREATININE 1.1 mg/dL (0.7-1.3); ESTIMATED GFR 79 mL/min (>60); GLUCOSE RANDOM 105 mg/dL (70-99); MAGNESIUM 2.1 mg/dL (1.8-2.4); POTASSIUM,K 3.5 mEq/L (3.5-5.1); PROTEIN TOTAL,TP 6.9 g/dl (6.4-8.2); SODIUM,NA 141 mEq/L (136-145)
[2024-09-20] MEDS: HYDROmorphone 1 MG/ML Syringe ONE (13:44)
[2024-09-20] MEDS ORDERED: ceFAZolin 2 GM Vial IVPUSH ONE (14:07)
[2024-09-20] MEDS: ceFAZolin 2 GM Vial IVPUSH ONE (14:40)
[2024-09-20] MEDS: Sodium Chloride 0.9% 1,000 ML IV ONE (14:50)
== END 2024-09-20 16:30 ==
LOC: JD.ED 12:39
DX: S52.501A Unspecified fracture of the lower end of right radius, initial encounter for closed fracture (principal); I10 Essential (primary) hypertension; Z88.7 Allergy status to serum and vaccine; Z88.8 Allergy status to other drugs, medicaments and biological substances; Z79.899 Other long term (current) drug therapy; W22.8XXA Striking against or struck by other objects, initial encounter
CPT/HCPCS: 29125; 36415; 70450; 71045; 72125; 72170; 73080; 73090; 73110; 80053; 83735; 85025; 96361; 96374; 96375; 96376; 99285; J0690; J1171; J7030; 99284